=== PATIENT | male | born 1995 | race Two or more races ===

== ENCOUNTER 2020-10-26 01:34 | Emergency (ER) | payer SELFPAY ==
[2020-10-26] MEDS ORDERED: Ketorolac 15 MG/ML SDV IM ONE (01:36)
--- NOTE | 2020-10-26 02:37 | CR ---
Indication: Injury Technique: Two views left humerus Comparison: None Findings: Bones: Alignment is normal. No fractures or bone lesions. Joint spaces: Unremarkable. Soft tissues: Unremarkable. Impression: Negative. Dictated by Zuly Robins MD @ Oct 26 2020 2:36AM Signed by Dr. Zuly Robins @ Oct 26 2020 2:36AM
--- NOTE | 2020-10-26 02:39 | CR ---
Indication: Injury Technique: Three views left elbow Comparison: None Findings: Bones: Alignment is normal. No fractures or bone lesions. Joint spaces: Unremarkable. Soft tissues: Unremarkable. No elbow effusion. Impression: Negative. Dictated by Zuly Robins MD @ Oct 26 2020 2:36AM Signed by Dr. Zuly Robins @ Oct 26 2020 2:37AM
--- NOTE | 2020-10-26 02:42 | EDM.PDOC ---
ED HPI GENERAL MEDICAL PROBLEM - General Chief Complaint: Upper Extremity Injury/Pain Stated Complaint: EMS Time Seen by Provider: 10/26/20 01:36 - History of Present Illness INITIAL COMMENTS - FREE TEXT/NARRATIVE: CHIEF COMPLAINT(S): Left elbow injury. HISTORY OF PRESENT ILLNESS: This is a 25-year-old man without any past medical history who comes to the emergency department with a chief complaint of left elbow injury. The patient states that he was walking around the back of his truck when he slipped on ice and hit his left elbow on the back of the truck. He states that since that time he has been experiencing pain on his left elbow. He denies any numbness, tingling, or weakness. He denies any shoulder pain, hand pain, wrist pain or any other injury. He denies any head injury or loss of consciousness. He describes the pain as achy rated 8 out of 10 without any radiation. He states that he tried 2 shots of tequila which did not seem to help the pain. He denies any relieving symptoms. He states that the pain is exacerbated by moving it. He has not yet tried any pain medications or ice. He denies any other symptoms at all at this time. REVIEW OF SYSTEMS: Skin:Denies a rash or abrasion MSK: Positive for left elbow pain. Neurological: Denies blurred vision, numbness, tingling, weakness PAST MEDICAL HISTORY: As per history of present illness and as reviewed below otherwise noncontributory. SURGICAL HISTORY: As per history of present illness and as reviewed below otherwise noncontributory. SOCIAL HISTORY: As per history of present illness and as reviewed below otherwise noncontributory. FAMILY HISTORY: As per history of present illness and as reviewed below otherwise noncontributory. EXAMINATION OF ORGAN SYSTEMS/BODY AREAS: Constitutional: Blood pressure 120/55, heart rate 75, respiratory rate 18 with an oxygen saturation of 100% on room air. Temperature 36.0 General: Overall well-appearing young man who is in no acute distress. Psychiatric: Appropriate mood and affect. Eyes: No scleral icterus or conjunctival erythema ENMT: Moist mucous membranes. No pharyngeal erythema no blood in the oropharynx. Cardiovascular: Regular, rate, and rhythm. No gallops, murmurs, or rubs. Bilateral upper extremity pulses symmetric and intact. No peripheral edema. No JVD. Respiratory: Lungs clear to auscultation bilaterally. No wheezes, rales, or rhonchi. Gastrointestinal: Soft, non-tender, non-distended. Normoactive bowel sounds Genitourinary: No suprapubic tenderness Musculoskeletal: The patient has full active and passive range of motion of the left shoulder, left wrist and full range of motion of the left hand. There is no anatomical snuffbox tenderness. There is no forearm tenderness or deformity. There is tenderness to palpation along the posterior aspect of the left elbow with some mild swelling. There is no obvious deformity. There is passive range of motion of the left elbow however the patient is limited during active secondary to pain. Skin: No lesions or abrasions. Neurological: Alert, GCS 15 distal sensation is intact in bilateral upper extremity MEDICAL DECISION MAKING AND COURSE IN THE ED WITH INTERPRETATION/REVIEW OF DIAGNOSTIC STUDIES: This is a is 25-year-old man without any significant past medical history who comes to the emergency department with left posterior elbow tenderness and swelling with full passive range of motion without any other signs of injury. At this time we will provide the patient with Toradol IM for pain relief. We will place an ice package on the patient's elbow. We will obtain a left elbow and left humeral x-ray. I do not believe any other labs or imaging are indicated. The radiological images were viewed by myself along with reading the report from the radiologist. Left humerus x-ray does not reveal any fracture or dislocation. Left elbow x-ray does not reveal any fracture dislocation there is no evidence of enlarged posterior fat pad. No bony abnormality. After imaging I did discuss the results with the patient. I discussed with him that at this time he would be stable for discharge. I discussed that he could use Tylenol, Motrin, ice, elevation for pain relief. I discussed that if he had any new or worsening symptoms he should return to the emergency department. I did encourage the patient not to drink for pain relief. In addition I discussed that if he had no improvement he should follow-up with orthopedics. He did express understanding was amenable to discharge at this time. DISPOSITION: The patient was discharged home in stable condition. The patient will follow up with orthopedics as needed CONDITION: Fair PROCEDURES: None FINAL IMPRESSION(S)/DIAGNOSES: 1. Left elbow pain Juanito Patricia M.D. L elbow Pain Score (Numeric/FACES): 7 - Related Data Allergies Allergy/AdvReac Type Severity Reaction Status Date / Time No Known Allergies Allergy Verified 10/26/20 01:37 Home Meds: Home Meds . [No Known Home Meds] 10/26/20 [History] Past Medical History - Past Health History Medical/Surgical History: Denies Medical/Surgical History Social & Family History - Family History Family Medical History: No Pertinent Family History - Caffeine Use Caffeine Use: Reports: Coffee, Energy Drinks, Soda, Tea - Recreational Drug Use Recreational Drug Use: No Review of Systems - Review of Systems Review Of Systems: See Below ED EXAM, GENERAL - Physical Exam Exam: See Below Course - Vital Signs Last Recorded V/S: Last Vital Signs Temp 36.2 C 10/26/20 02:50 Pulse 66 10/26/20 02:50 Resp 18 10/26/20 02:50 BP 116/59 L 10/26/20 02:50 Pulse Ox 97 10/26/20 02:50 - Orders/Labs/Meds Meds: Medications Discontinued Medications Generic Name Dose Route Start Last Admin Trade Name Tad PRN Reason Stop Dose Admin Ketorolac Tromethamine 15 mg 10/26/20 01:36 10/26/20 01:46 Toradol IM 10/26/20 01:37 15 mg ONETIME ONE Administration Departure - Departure Time of Disposition: 02:41 Disposition: Home, Self-Care 01 Condition: Fair Clinical Impression: Elbow injury Qualifiers: Encounter type: initial encounter Laterality: left Qualified Code(s): S59.902A - Unspecified injury of left elbow, initial encounter - Discharge Information *PRESCRIPTION DRUG MONITORING PROGRAM REVIEWED*: No *COPY OF PRESCRIPTION DRUG MONITORING REPORT IN PATIENT DHRUV: No Instructions: Musculoskeletal Pain, Pain Medicine Instructions, [id number] Referrals: PCP,None [Primary Care Provider] - Forms: ED Department Discharge Additional Instructions: Your evaluated today on an emergent basis. At this time there was no evidence of any fracture or abnormality of your left elbow. I do suspect that there is soft tissue injury and musculoskeletal pain. I do recommend the use of Tylenol and Motrin for pain relief. I do not recommend the use of alcohol to control your pain. You may use ice to the affected area 20 minutes 4 times a day. I would like you to follow-up with orthopedics or your primary care physician within 2 to 3 days for continued evaluation and management. Return for any new or worsening symptoms. Please use: Tylenol 500-1000mg every 6 hours (DO NOT TAKE MORE THAN 4000mg in 1 day) Ibuprofen 400mg every 6 hours (Take with food as it can cause ulcers, GI upset) Example schedule: 8:00 AM (Tylenol 500-1000mg) 11:00 AM (Ibuprofen 400mg) 2:00 PM (Tylenol 500-1000mg) 5:00 PM (Ibuprofen 400mg) In addition to Tylenol and Motrin you may use over the counter creams such as Voltaren Cream or Lidocaine Cream (Lidoderm) as needed 4 times a day for symptomatic relief. Ice the area 20 minutes 4 times per day [facility] Professional Building [address] [place], [address] [place] [address] [facility] [address] [place] [address] [place] [id number] The patient is informed of any results of their evaluation and diagnostic workup and all questions are answered. They are given discharge instructions and return precautions. The patient is stable for discharge. The patient states they understand and agree with the plan and that they will return if their symptoms get worse or if they have any new concerns. The following information is given to patients seen in the emergency department who are being discharged to home. This information is to outline your options for follow-up care. We provide all patients seen in our emergency department with a follow-up referral. The need for follow-up, as well as the timing and circumstances, are variable depending upon the specifics of your emergency department visit. If you don't have a primary care physician on staff, we will provide you with a referral. We always advise you to contact your personal physician following an emergency department visit to inform them of the circumstance of the visit and for follow-up with them and/or the need for any referrals to a consulting specialist. The emergency department will also refer you to a specialist when appropriate. This referral assures that you have the opportunity for follow-up care with a specialist. All of these measure are taken in an effort to provide you with optimal care, which includes your follow-up. Under all circumstances we always encourage you to contact your private physician who remains a resource for coordinating your care. When calling for follow-up care, please make the office aware that this follow-up is from your recent emergency room visit. If for any reason you are refused follow-up, please contact the [facility] Emergency Department at and asked to speak to the emergency department charge nurse. Sepsis Event Note (ED) - Evaluation Sepsis Screening Result: No Definite Risk - Focused Exam Vital Signs: Vital Signs Temp Pulse Resp BP Pulse Ox 10/26/20 02:50 36.2 C 66 18 116/59 L 97 10/26/20 01:37 36.0 C L 75 18 120/55 L 100
== END 2020-10-26 02:50 | disposition home or self-care (01) ==
LOC: MW.ED 01:34
DX: S59.902A Unspecified injury of left elbow, initial encounter (principal); W01.10XA Fall on same level from slipping, tripping and stumbling with subsequent striking against unspecified object, initial encounter
CPT/HCPCS: 73060; 73080; 96372; 99283; J1885

== ENCOUNTER 2021-08-30 22:25 | Emergency (ER) | payer SELFPAY ==
--- NOTE | 2021-08-30 23:07 | CR ---
INDICATION: Cough TECHNIQUE: Chest radiograph 1 view COMPARISON: None FINDINGS: Mediastinum: The mediastinum is normal in appearance. The heart silhouette is normal in size and morphology. Lung: Both lungs are unremarkable in appearance. No sign of pleural effusion seen. No pneumothorax is identified. Bone and Soft tissue: Unremarkable for age. IMPRESSION: 1. No acute cardiopulmonary disease is seen. Dictated by: Juan Casillas MD @ 08/30/2021 23:05:19 (Electronically Signed)
--- NOTE | 2021-08-30 23:22 | EDM.PDOC ---
ED HPI GENERAL MEDICAL PROBLEM - General Chief Complaint: Gastrointestinal Problem Stated Complaint: COUGHING UP BLOOD Time Seen by Provider: 08/30/21 22:44 - History of Present Illness INITIAL COMMENTS - FREE TEXT/NARRATIVE: HISTORY AND PHYSICAL: History of present illness: This is a 26-year-old gentleman who comes to the ER today secondary to concerns over episodes of coughing up blood. Patient denies any recent fevers, shakes, chills, nausea, vomiting, diarrhea. Patient reports minimal cough. Patient denies any chest pain or shortness of breath. Patient has any abdominal pain or discomfort. Patient has any dysuria, frequency, urgency. Patient has any known Covid exposures. Patient reports he does smoke but denies any alcohol or drugs. Review of systems: As per history of present illness and below otherwise all systems reviewed and negative. Past medical history: As per history of present illness and as reviewed below otherwise noncontributory. Surgical history: As per history of present illness and as reviewed below otherwise noncontributory. Social history: No reported history of drug abuse. Family history: As per history of present illness and as reviewed below otherwise noncontributory. Physical exam: This patient was seen and evaluated during the 2019 SARS-CoV-2 novel coronavirus pandemic period. Community viral transmission is ongoing at time of this encounter and the emergency department is operating under pandemic response procedures. Constitutional: Patient is oriented to person, place, and time. Appears well- developed and well-nourished. No distress. HEENT: Moist mucous membranes Head: Normocephalic and atraumatic Eyes: Right eye exhibits no discharge. Left eye exhibits no discharge. No scleral icterus Neck: Normal range of motion. No tracheal deviation present. Cardiovascular: Normal rate and regular rhythm. Pulmonary: Effort normal, no respiratory distress. Abdominal: No distention Musculoskeletal: Normal range of motion Neurologic: Alert and oriented to person, place and time. Skin: [place], warm and dry. Psychiatric: Normal mood and affect. Behavior is normal. Judgment and thought content normal. Nursing note and vital signs have been reviewed Diagnostics: Chest Xray: Normal cardiac silhouette No infiltrates or effusions identified. No PTX No evidence of acute bony fracture. As interpreted by ER MD: [employer]: [] Assessment and plan: 26-year-old who presents ER today with episodes of hemoptysis. Patient is clinically and hemodynamically stable here in the ED. Patient's vital signs are all within normal limits. Patient's chest x-ray is clear without any evidence of pneumonia or other infectious process. Etiology of his hemoptysis is unclear. I have discussed with the patient the need to stop smoking and to follow-up with his primary care doctor for referral to a forming and assembling supervisor for further evaluation if the symptoms just persist. Patient's coronavirus test is positive. Patient will need to follow-up with his doctor for further evaluation of his hemoptysis although it is most likely secondary to coronavirus. Definitive disposition and diagnosis as appropriate pending reevaluation and review of above. - Related Data Allergies Allergy/AdvReac Type Severity Reaction Status Date / Time No Known Allergies Allergy Verified 08/30/21 22:33 Home Meds: Home Meds . [No Known Home Meds] 10/26/20 [History] Past Medical History - Past Health History Medical/Surgical History: Denies Medical/Surgical History Social & Family History - Family History Family Medical History: No Pertinent Family History - Tobacco Use Tobacco Use Status *Q: Current Every Day Tobacco User Years of Tobacco use: 2 Packs/Tins Daily: 1 - Caffeine Use Caffeine Use: Reports: Coffee, Soda - Recreational Drug Use Recreational Drug Use: No ED ROS GENERAL - Review of Systems Review Of Systems: See Below ED EXAM, GENERAL - Physical Exam Exam: See Below Course - Vital Signs Last Recorded V/S: Last Vital Signs Temp 97.3 F 08/30/21 22:34 Pulse 62 08/30/21 23:47 Resp 18 08/30/21 23:47 BP 105/54 L 08/30/21 23:47 Pulse Ox 99 08/30/21 23:47 - Orders/Labs/Meds Labs: Laboratory Tests 08/30/21 Range/Units 22:50 Influenza Type A RNA NEGATIVE (NEGATIVE) Influenza Type B RNA NEGATIVE (NEGATIVE) SARS-CoV-2 RNA ([facility]) POSITIVE H (NEGATIVE) Departure - Departure Time of Disposition: 23:52 Disposition: Home, Self-Care 01 Condition: Good Clinical Impression: COVID-19 virus infection - Discharge Information Instructions: 10 Things You Can Do to Manage Your COVID-19 Symptoms at Home - [facility] (03/12/2021), COVID-19 Quarantine vs. Isolation - [facility] (05/24/2021) Referrals: PCP,None [Primary Care Provider] - Forms: ED Department Discharge Additional Instructions: Your seen and evaluated in the ER today secondary to episodes of coughing of blood. This is most likely secondary to your coronavirus infection. Please make an appointment to follow-up with your doctor after 1 to 2 weeks for reevaluation and possible referral for further evaluation of the coughing up blood but as mentioned this is most likely secondary to the coronavirus infection. Your coughing of blood should subside hopefully once your Covid infection has been resolved. 1. Your COVID-19 screening is positive. That means you do have the coronavirus and you are considered contagious. Your vital signs and oxygen saturation are well enough that you were able to monitor your symptoms at home. Continue to monitor for trouble breathing, new confusion or inability to arouse, bluish lips or face or any of the other symptoms we discussed -if this occurs please return to the emergency room. 2. Please self quarantine over the next 10 days. Inform any persons that you have been in contact with since you started becoming symptomatic that you have tested positive; they should be made aware and take the appropriate steps as needed. 3. You can take NyQuil during the evening to help get a restful night sleep. May alternate Tylenol and ibuprofen as needed for pain and fever management. 4. The [facility] department will be calling you and following up with you. The [place] COVID 19 Hotline phone number , They are open Monday - Monday 7am - 7pm. Follow up with your primary care provider for re-evaluation and re-testing after the 10 day quarantine and discuss when you should be seen. The following information is given to patients seen in the emergency department who are being discharged to home. This information is to outline your options for follow-up care. We provide all patients seen in our emergency department with a follow-up referral. The need for follow-up, as well as the timing and circumstances, are variable depending upon the specifics of your emergency department visit. If you don't have a primary care physician on staff, we will provide you with a referral. We always advise you to contact your personal physician following an emergency department visit to inform them of the circumstance of the visit and for follow-up with them and/or the need for any referrals to a consulting speci alist. The emergency department will also refer you to a specialist when appropriate. This referral assures that you have the opportunity for follow-up care with a specialist. All of these measure are taken in an effort to provide you with optimal care, which includes your follow-up. Under all circumstances we always encourage you to contact your private physician who remains a resource for coordinating your care. When calling for follow-up care, please make the office aware that this follow-up is from your recent emergency room visit. If for any reason you are refused follow-up, please contact the [facility] Emergency Department at and asked to speak to the emergency department charge nurse. [facility] - [facility] [address] [place] [id number] [facility] [address] [place] [id number] Sepsis Event Note (ED) - Evaluation Sepsis Screening Result: No Definite Risk - Focused Exam Vital Signs: Vital Signs Temp Pulse Resp BP Pulse Ox 08/30/21 23:47 62 18 105/54 L 99 08/30/21 22:34 97.3 F 60 18 102/46 L 97
[2021-08-30 23:37] LABS: CORONAVIRUS COVID-19 NAA POSITIVE (NEGATIVE); INFLUENZA A NAA NEGATIVE (NEGATIVE); INFLUENZA B NAA NEGATIVE (NEGATIVE)
== END 2021-08-31 00:01 | disposition home or self-care (01) ==
LOC: MW.ED 22:25
DX: U07.1 COVID-19 (principal); Z72.0 Tobacco use
CPT/HCPCS: 0240U; 71045; 99283

== ENCOUNTER 2021-12-09 17:20 | Emergency (ER) | payer OTHER ==
[2021-12-09] MEDS ORDERED: Diphtheria,Pertussis(Acell),Tetanus Vaccine 0.5 ML Syringe IM ONE (17:58)
[2021-12-09] MEDS ORDERED: Lidocaine 2% Viscous Solution 15 ML UD PO ONE (18:02)
[2021-12-09] MEDS ORDERED: Cephalexin 500 MG Cap PO ONE (18:08)
[2021-12-09] MEDS ORDERED: traMADol 50 MG Tab PO ONE (18:09)
== END 2021-12-09 19:16 | disposition home or self-care (01) ==
LOC: MW.ED 17:20
DX: S01.512A Laceration without foreign body of oral cavity, initial encounter (principal); L08.9 Local infection of the skin and subcutaneous tissue, unspecified; Z23 Encounter for immunization; V86.99XA Unspecified occupant of other special all-terrain or other off-road motor vehicle injured in nontraffic accident, initial encounter; Y92.410 Unspecified street and highway as the place of occurrence of the external cause
CPT/HCPCS: 70110; 90471; 90715; 99283; A9270